=== PATIENT | female | born 1990 | race Two or more races ===

== ENCOUNTER → 2017-09-16 | Emergency (ER) | payer OTHER ==
[~2017-09-16] VITALS: Ht 160 cm; Wt 77.1 kg
[~2017-09-16] MED LIST: CODE1TAB37 PO; DOXYCYCLINE HY100 MG PO; NAPROXEN SODIU550 MG PO
== END | disposition home or self-care (01) ==
LOC: ER 15:26
DX: S82.045A Nondisplaced comminuted fracture of left patella, initial encounter for closed fracture (principal); W18.39XA Other fall on same level, initial encounter; Y93.89 Activity, other specified; Y92.098 Other place in other non-institutional residence as the place of occurrence of the external cause; Y99.8 Other external cause status

== ENCOUNTER 2017-09-20 05:40 | Day surgery (SDC) | payer OTHER | END 2017-09-20 17:00 | disposition home or self-care (01) | LOC: CIR.AMB 05:40 | DX: S82.042A Displaced comminuted fracture of left patella, initial encounter for closed fracture (principal); M65.862 Other synovitis and tenosynovitis, left lower leg ==

== ENCOUNTER 2017-10-12 12:41 | Outpatient (CLI) | payer OTHER | END 2017-10-12 12:44 | disposition home or self-care (01) | LOC: RAD 12:41 | DX: S82.042D Displaced comminuted fracture of left patella, subsequent encounter for closed fracture with routine healing (principal) ==

== ENCOUNTER → 2017-10-27 | Outpatient (CLI) | payer OTHER | END | disposition home or self-care (01) | LOC: RAD 501 13:05 | DX: S82.042D Displaced comminuted fracture of left patella, subsequent encounter for closed fracture with routine healing (principal) ==

== ENCOUNTER 2018-03-13 10:26 | Outpatient (CLI) | payer OTHER | END 2018-03-13 10:56 | disposition home or self-care (01) | LOC: TOM 10:26 | DX: M25.562 Pain in left knee (principal); I10 Essential (primary) hypertension ==

== ENCOUNTER 2018-05-17 15:56 | Outpatient (CLI) | payer OTHER | END 2018-05-17 16:02 | disposition home or self-care (01) | LOC: RAD 501 15:56 | DX: M25.562 Pain in left knee (principal) ==

== ENCOUNTER → 2018-08-24 | Outpatient (CLI) | payer OTHER | END | disposition home or self-care (01) | LOC: RAD 501 08:27 | DX: M54.5 Low back pain (principal); M25.552 Pain in left hip; M79.652 Pain in left thigh; M25.551 Pain in right hip; M25.562 Pain in left knee ==

== ENCOUNTER 2018-12-13 10:47 | Outpatient (CLI) | payer OTHER | END 2018-12-13 11:11 | disposition home or self-care (01) | LOC: NUCLEAR 10:47 | DX: I87.2 Venous insufficiency (chronic) (peripheral) (principal) ==

== ENCOUNTER 2019-01-02 08:34 | Outpatient (CLI) | payer OTHER ==
[2019-01-02] MEDS ORDERED: ZYRTEC10 M3 PO (11:27)
[2019-01-02] MEDS ORDERED: PROVENTIL HFA6.7 GM IH (11:27)
== END 2019-01-02 09:07 | disposition home or self-care (01) ==
LOC: LAB 08:34 → NUCLEAR 11:00
DX: D64.89 Other specified anemias (principal); E88.89 Other specified metabolic disorders; D68.8 Other specified coagulation defects; N39.0 Urinary tract infection, site not specified; Z22.322 Carrier or suspected carrier of Methicillin resistant Staphylococcus aureus; I49.8 Other specified cardiac arrhythmias; Z76.89 Persons encountering health services in other specified circumstances

== ENCOUNTER 2019-01-11 16:20 | Outpatient (CLI) | payer OTHER ==
[~2019-01-11 16:20] MED LIST changes: +PROVENTIL HFA6.7 GM IH; +ZYRTEC10 M3 PO
[2019-01-12] MEDS ORDERED: FLONASE16 GM (08:17)
[2019-01-12] MEDS ORDERED: ZANTAC300 MG PO (08:17)
== END 2019-01-11 16:40 | disposition home or self-care (01) ==
LOC: RAD 16:20
DX: M24.662 Ankylosis, left knee (principal)

== ENCOUNTER → 2019-01-12 06:00 | Outpatient (CLI) | payer OTHER ==
[~2019-01-12 06:00] MED LIST changes: +FLONASE16 GM; +ZANTAC300 MG PO
== END | disposition home or self-care (01) ==
LOC: LAB 06:00 → SURH 01-15 07:33 → EDSTATUS 01-16 08:37 → CIR.AMB 01-16 12:14
DX: Z32.02 Encounter for pregnancy test, result negative (principal)

== ENCOUNTER → 2019-01-18 | Outpatient (CLI) | payer OTHER | END | disposition home or self-care (01) | LOC: NUCLEAR 03-21 09:30 | DX: G90.522 Complex regional pain syndrome I of left lower limb (principal) | CPT/HCPCS: 78315; A9503 ==

== ENCOUNTER 2021-07-07 17:30 | Inpatient (IN) | payer OTHER ==
[~2021-07-07] VITALS: Ht 167.6 cm; Wt 93.4 kg
--- NOTE | 2021-07-07 18:18 | NUR ---
SE RECIBE PTE ALERTA, ORIENTADA EN GONZALO JOVITA ESFERAS. PTE REFIERE QUE GINECOLOGO LA REFIERE A NERY DE EMERGENCIAS YA QUE LLEVA DOS SEMANAS APROXIMADAMENTE CON VOMITOS SIN TOLERAR COMIDAS.
--- NOTE | 2021-07-08 00:20 | NUR ---
DR. DUDLEY DA DE CHERELLE A PACIENTE. PACIENTE REFIERE QUE SE SIENTE CON NAUSEAS. SE NOTIFICA A DR. TOLENTINO QUIEN ORDENA ZOFRAN Y QUE SE MANTENGA A PACIENTE EN OBSERVACION.
[2021-07-09] MEDS ORDERED: LORATADINE10 MG (15:18)
[2021-07-09] MEDS ORDERED: BUPROPION XL150 MG (15:19)
[2021-07-09] MEDS ORDERED: PROAIR HFA8.5 GM (15:19)
[2021-07-09] MEDS ORDERED: FLONASE16 GM (15:19)
[2021-07-09] MEDS ORDERED: GABAPENTIN300 M2 (15:21)
[2021-07-09] MEDS ORDERED: CLONAZEPAM0.5 MG (15:21)
[2021-07-09] MEDS ORDERED: LITHIUM CARBON450 MG (15:22)
[2021-07-11] MEDS ORDERED: PEPCID AC20 MG PO (13:21)
[2021-07-11] MEDS ORDERED: ZOFRAN8 MG PO (13:21)
== END 2021-07-11 15:19 | disposition home or self-care (01) | DRG 833 ==
LOC: ER 17:30 → SEC-K 07-08 08:46 → MEDJ 07-08 17:21
PROVIDERS: ADMIT Student in an Organized Health Care Education/Training Program; ATTEND Student in an Organized Health Care Education/Training Program
PROC: BU4CZZZ Ultrasonography of Uterus and Ovaries (ICD-10-PCS; principal; 2021-07-08)
DX: O21.1 Hyperemesis gravidarum with metabolic disturbance (principal); Z3A.08 8 weeks gestation of pregnancy

== ENCOUNTER → 2021-08-10 | Emergency (ER) | payer OTHER ==
[~2021-08-10] VITALS: Ht 160 cm; Wt 91.6 kg
[~2021-08-10] MED LIST changes: +BUDESONIDE0.25 MG/2 IH; +BUPROPION XL150 MG; +CLONAZEPAM0.5 MG; +GABAPENTIN300 M2; +LITHIUM CARBON450 MG; +LORATADINE10 MG; +PEPCID AC20 MG PO; +PROAIR HFA8.5 GM; +ZITHROMAX500 MG PO; +ZOFRAN8 MG; +ZOFRAN8 MG PO
== END | disposition home or self-care (01) ==
LOC: ER 14:37
DX: B34.9 Viral infection, unspecified (principal); B96.89 Other specified bacterial agents as the cause of diseases classified elsewhere; R05.9 Cough, unspecified; Z20.822 Contact with and (suspected) exposure to COVID-19

== ENCOUNTER 2021-09-30 10:51 | Outpatient (CLI) | payer OTHER | END 2021-09-30 12:47 | disposition home or self-care (01) | LOC: PRENATAL 10:51 | PROVIDERS: ATTEND Obstetrics & Gynecology Maternal & Fetal Medicine | DX: O35.0XX0 Maternal care for (suspected) central nervous system malformation in fetus, not applicable or unspecified (principal); O35.3XX0 Maternal care for (suspected) damage to fetus from viral disease in mother, not applicable or unspecified; O34.219 Maternal care for unspecified type scar from previous cesarean delivery; O99.210 Obesity complicating pregnancy, unspecified trimester ==

== ENCOUNTER 2021-12-23 15:39 | Outpatient (CLI) | payer OTHER | END 2021-12-23 16:33 | disposition home or self-care (01) | LOC: PRENATAL 15:39 | PROVIDERS: ATTEND Obstetrics & Gynecology Maternal & Fetal Medicine | DX: O26.849 Uterine size-date discrepancy, unspecified trimester (principal); O35.0XX0 Maternal care for (suspected) central nervous system malformation in fetus, not applicable or unspecified; O34.219 Maternal care for unspecified type scar from previous cesarean delivery; O99.210 Obesity complicating pregnancy, unspecified trimester; O36.8199 Decreased fetal movements, unspecified trimester, other fetus; Z3A.32 32 weeks gestation of pregnancy ==

== ENCOUNTER 2022-01-28 07:51 | Inpatient (IN) | payer OTHER ==
[~2022-01-28] VITALS: Ht 160 cm; Wt 3.2 kg
[2022-01-28] MEDS ORDERED: PRENATAL CAPLE1 EAC1 (09:22)
[2022-01-28] MEDS ORDERED: FLONASE16 GM (09:22)
[2022-01-28] MEDS ORDERED: PROAIR HFA8.5 GM (10:33)
[2022-01-31] MEDS ORDERED: ACETAMINOPHEN-1 EAC2 PO (09:39)
[2022-01-31] MEDS ORDERED: IBUPROFEN600 MG PO (09:39)
[2022-01-31] MEDS ORDERED: FAMOTIDINE20 MG/2 M1 IV (09:39)
[2022-01-31] MEDS ORDERED: PEPCID AC20 MG PO (09:44)
== END 2022-01-31 11:55 | disposition home or self-care (01) | DRG 785 ==
LOC: LDR 07:51 → O/R 13:17 → OB/GYN 17:24
PROVIDERS: ADMIT Obstetrics & Gynecology; ATTEND Obstetrics & Gynecology
PROC: 4A1HXCZ Monitoring of Products of Conception, Cardiac Rate, External Approach (ICD-10-PCS; 2022-01-28)
PROC: 0UB70ZZ Excision of Bilateral Fallopian Tubes, Open Approach (ICD-10-PCS; 2022-01-28)
PROC: 10D00Z1 Extraction of Products of Conception, Low, Open Approach (ICD-10-PCS; principal; 2022-01-28 14:00)
DX: O34.211 Maternal care for low transverse scar from previous cesarean delivery (principal); Z3A.38 38 weeks gestation of pregnancy; Z37.0 Single live birth; Z30.2 Encounter for sterilization

== ENCOUNTER 2022-11-12 18:56 | Emergency (ER) | payer OTHER ==
[~2022-11-12] VITALS: Ht 160 cm; Wt 99.8 kg
[~2022-11-12 18:56] MED LIST changes: +ACETAMINOPHEN-1 EAC2 PO; +FAMOTIDINE20 MG/2 M1 IV; +IBUPROFEN600 MG PO; +PRENATAL CAPLE1 EAC1
[2022-11-12] MEDS ORDERED: CLARITIN10 M1 PO (19:18)
[2022-11-12] MEDS ORDERED: ACID REDUCER20 M1 PO (19:19)
[2022-11-12] MEDS ORDERED: PYRIDIUM200 MG PO (21:15)
== END 2022-11-12 21:31 | disposition home or self-care (01) ==
LOC: ER 18:56
DX: N39.0 Urinary tract infection, site not specified (principal); I10 Essential (primary) hypertension; Z91.011 Allergy to milk products; Z91.013 Allergy to seafood; Z91.018 Allergy to other foods; G62.9 Polyneuropathy, unspecified; J45.909 Unspecified asthma, uncomplicated; K29.70 Gastritis, unspecified, without bleeding; M06.80 Other specified rheumatoid arthritis, unspecified site; B96.1 Klebsiella pneumoniae [K. pneumoniae] as the cause of diseases classified elsewhere; Z16.11 Resistance to penicillins

== ENCOUNTER 2024-09-23 23:10 | Emergency (ER) | payer OTHER ==
[~2024-09-23] VITALS: Ht 160 cm; Wt 97.5 kg
[~2024-09-23 23:10] MED LIST changes: +ACID REDUCER20 M1 PO; +CLARITIN10 M1 PO; +PYRIDIUM200 MG PO
[2024-09-24] MEDS ORDERED: KETOROLAC TROMETHAMINE 60 MG VIAL IM STA (01:45)
[2024-09-24] MEDS ORDERED: KETOROLAC TROMETHAMINE 60 MG VIAL IM ONE (01:58)
[2024-09-24] MEDS ORDERED: KETO10TA2 PO (03:06)
== END 2024-09-24 03:12 ==
LOC: ER 23:13
DX: S52.592A Other fractures of lower end of left radius, initial encounter for closed fracture (principal); S00.93XA Contusion of unspecified part of head, initial encounter; W18.39XA Other fall on same level, initial encounter; Y93.89 Activity, other specified; Y92.254 Theater (live) as the place of occurrence of the external cause; Y99.9 Unspecified external cause status; Z91.011 Allergy to milk products; Z91.013 Allergy to seafood; Z91.018 Allergy to other foods